=== PATIENT | female | born 1970 | race Two or more races ===

== ENCOUNTER 2024-12-11 18:38 | Emergency (ER) | payer OTHER ==
[~2024-12-11] VITALS: Ht 152.4 cm; Wt 72.6 kg
[2024-12-11] MEDS ORDERED: DOLOGESIC 500-1 EACH PO (19:58)
[2024-12-11] MEDS ORDERED: PROVENTIL S2 MG/5 ML PO (19:58)
[2024-12-11] MEDS ORDERED: FAMOTIDINE/PF 20 MG/2 ML VIAL IV ONE (21:00)
[2024-12-11] MEDS ORDERED: ONDANSETRON HCL 2 MG/ML VIAL IV ONE (21:00)
[2024-12-11] MEDS ORDERED: 0.9 % SODIUM CHLORIDE 1,000 ML IV ONE (21:00)
[2024-12-11] MEDS ORDERED: MORPHINE SULFATE 2 MG/ML SYRINGE IV ONE (21:15)
[2024-12-11] MEDS ORDERED: ONDANSETRON HCL 2 MG/ML VIAL ONE (21:47)
[2024-12-11] MEDS ORDERED: FAMOTIDINE/PF 20 MG/2 ML VIAL ONE (21:47)
[2024-12-11 22:14] LABS: BASO % 0.5 % (0.1-1.2); EOS # 0.16 (0.04-0.54); EOS % 1.3 % (0.7-7.0); LYMPH # 2.13 (1.18-3.74); LYMPH % 17.9 % (19.3-53.1); MEAN PLATELET VOLUME 10.40 fl (9.4-12.4); MONO # 0.74 (0.24-0.82); MONO % 6.2 % (4.7-12.5); NEUT # 8.77 (1.56-6.13); NEUT % 73.8 % (34.0-71.1); RED CELL DISTRIBUTION WIDTH 12.3 % (11.6-14.4)
[2024-12-11 22:18] LABS: ERYTHROCYTE SEDIMENTATION RATE 17 mm/hr (0-30)
[2024-12-11 22:33] LABS: INR 1.01
[2024-12-11 22:40] LABS: ALT/SGPT 25.0 U/L (12-78); AST/SGOT 17.0 U/L (15-37); BILIRUBIN TOTAL 0.79 mg/dL (0.3-1.2); BUN CREA RATIO 19.0 (7.0-25.0); CREATININE SERUM 0.64 mg/dL (0.55-1.02); GFR 97.44; GLOBULINA 3.1 G/DL (2.4-3.5); GLUCOSE FASTING 116.0 mg/dL (65-100); OSMOLALITY SERUM 282.0 MOSM/KG (275-295)
[2024-12-12 00:31] VITALS: BP 118/71; O2SAT 100
[2024-12-12] MEDS ORDERED: METRONIDAZOLE/SODIUM CHLORIDE 500 MG/100 ML PIGGYBACK IV STA (02:14)
[2024-12-12] MEDS ORDERED: MORPHINE SULFATE 4 MG/ML CARTRIDGE IV STA (02:15)
[2024-12-12] MEDS ORDERED: METRONIDAZOLE/SODIUM CHLORIDE 500 MG/100 ML PIGGYBACK IV ONE (02:18)
[2024-12-12] MEDS ORDERED: METRONIDAZOLE500 MG PO (05:45)
[2024-12-12] MEDS ORDERED: INTESTINEX680 M1 PO (05:45)
[2024-12-12] MEDS ORDERED: LEVSIN/SL0.125 MG SL (05:45)
== END 2024-12-12 06:17 ==
LOC: ER 18:38
DX: K57.92 Diverticulitis of intestine, part unspecified, without perforation or abscess without bleeding (principal); K57.30 Diverticulosis of large intestine without perforation or abscess without bleeding; Z88.6 Allergy status to analgesic agent; Z88.0 Allergy status to penicillin; Z88.8 Allergy status to other drugs, medicaments and biological substances; Z87.09 Personal history of other diseases of the respiratory system

== ENCOUNTER 2024-12-13 21:31 | Inpatient (IN) | payer OTHER ==
[~2024-12-13] VITALS: Ht 152.4 cm; Wt 72.6 kg
[~2024-12-13 21:31] MED LIST: DOLOGESIC 500-1 EACH PO; INTESTINEX680 M1 PO; LEVSIN/SL0.125 MG SL; METRONIDAZOLE500 MG PO; PROVENTIL S2 MG/5 ML PO
[2024-12-13] MEDS ORDERED: 0.9 % SODIUM CHLORIDE 500 ML IV SCH (23:00)
[2024-12-13] MEDS ORDERED: MEROPENEM 1,000 MG VIAL IV ONE (23:00)
[2024-12-13] MEDS ORDERED: ONDANSETRON HCL 2 MG/ML VIAL IV ONE (23:00)
[2024-12-13] MEDS ORDERED: MORPHINE SULFATE 4 MG/ML CARTRIDGE IV ONE (23:00)
[2024-12-13] MEDS ORDERED: FAMOTIDINE/PF 20 MG/2 ML VIAL IV ONE (23:00)
[2024-12-13 23:40] LABS: ERYTHROCYTE SEDIMENTATION RATE 51 mm/hr (0-30)
[2024-12-13 23:42] LABS: BASO % 0.3 % (0.1-1.2); EOS # 0.10 (0.04-0.54); EOS % 1.5 % (0.7-7.0); LYMPH # 0.28 (1.18-3.74); LYMPH % 4.2 % (19.3-53.1); MEAN PLATELET VOLUME 10.10 fl (9.4-12.4); MONO # 0.44 (0.24-0.82); MONO % 6.6 % (4.7-12.5); NEUT # 5.79 (1.56-6.13); NEUT % 87.1 % (34.0-71.1); RED CELL DISTRIBUTION WIDTH 11.8 % (11.6-14.4)
[2024-12-13 23:58] LABS: INR 1.14
[2024-12-14 00:02] LABS: ALT/SGPT 24.0 U/L (12-78); AST/SGOT 11.0 U/L (15-37); BILIRUBIN TOTAL 0.47 mg/dL (0.3-1.2); BUN CREA RATIO 25.0 (7.0-25.0); CREATININE SERUM 0.68 mg/dL (0.55-1.02); GFR 90.86; GLOBULINA 3.4 G/DL (2.4-3.5); GLUCOSE FASTING 136.0 mg/dL (65-100); OSMOLALITY SERUM 281.0 MOSM/KG (275-295)
[2024-12-14 03:41] LABS: URINE APPEARANCE Clear; URINE BILIRRUBIN Negative (NEGATIVE); URINE BLOOD Negative; URINE COLOR Yellow; URINE GLUCOSE Negative (NEGATIVE); URINE LEUKOCYTE Negative; URINE NITRATE Negative; URINE PROTEIN Trace (NEGATIVE); URINE UROBILINOGEN 0.2 E.U./dl
[2024-12-14 04:08] LABS: URINE KETONE 80 (NEGATIVE)
[2024-12-14 04:09] LABS: URINE BACTERIA SOME; URINE WBC 0-2 /hpf
[2024-12-14] MEDS ORDERED: MORPHINE SULFATE 4 MG/ML CARTRIDGE IV STA (05:50)
[2024-12-14] MEDS ORDERED: ACETAMINOPHEN 500 MG GEL..CAP PO STA (05:50)
[2024-12-14] MEDS ORDERED: MORPHINE SULFATE 2 MG/ML SYRINGE IV PRN (13:15)
[2024-12-14] MEDS ORDERED: ACETAMINOPHEN 325 MG TABLET PO PRN (13:15)
[2024-12-14] MEDS ORDERED: ONDANSETRON HCL 4 MG in 0.9 % SODIUM CHLORIDE 50 ML IV PRN (13:15)
[2024-12-14] MEDS ORDERED: ACETAMINOPHEN 500 MG GEL..CAP PO PRN (14:00)
[2024-12-14 17:16] VITALS: BP 124/72; O2SAT 100
[2024-12-14 18:31] VITALS: BP 160/73; O2SAT 99
[2024-12-14] MEDS ORDERED: FAMOTIDINE/PF 20 MG/2 ML VIAL IV SCH (21:00)
[2024-12-14 21:57] VITALS: BP 119/75; O2SAT 97
[2024-12-15 02:01] VITALS: BP 117/74; O2SAT 95
[2024-12-15] MEDS ORDERED: CEFTRIAXONE SODIUM 2,000 MG in 0.9 % SODIUM CHLORIDE 100 ML IV SCH (09:00)
[2024-12-15 09:34] VITALS: BP 111/60; O2SAT 96
[2024-12-15 20:36] VITALS: BP 98/64
[2024-12-16 02:40] VITALS: BP 116/76; O2SAT 98
[2024-12-16 08:47] VITALS: BP 115/77; O2SAT 98
[2024-12-16 16:00] VITALS: BP 118/73; O2SAT 99
[2024-12-17 03:36] VITALS: BP 110/67; O2SAT 100
[2024-12-17 08:23] VITALS: BP 131/82; O2SAT 97
== END 2024-12-17 14:02 | disposition home or self-care (01) | DRG 392 ==
LOC: ER 21:32 → SEC-K 12-14 13:11 → MEDI 12-14 13:11
PROVIDERS: ADMIT Student in an Organized Health Care Education/Training Program; ATTEND Student in an Organized Health Care Education/Training Program
PROC: BW21ZZZ Computerized Tomography (CT Scan) of Abdomen and Pelvis (ICD-10-PCS; principal; 2024-12-13)
PROC: BW21YZZ Computerized Tomography (CT Scan) of Abdomen and Pelvis using Other Contrast (ICD-10-PCS; 2024-12-13)
DX: K57.32 Diverticulitis of large intestine without perforation or abscess without bleeding (principal); K90.49 Malabsorption due to intolerance, not elsewhere classified; Z78.9 Other specified health status; K57.30 Diverticulosis of large intestine without perforation or abscess without bleeding; R11.0 Nausea